=== PATIENT | male | born 1980 | race Caucasian/White ===

== ENCOUNTER → 2018-06-13 | Outpatient (CLI) | payer BC ==
[2018-06-15 09:46] LABS: Anion Gap 4.8 mmol/L (4.00-12.00); Calcium 9.8 mg/dL (8.7-10.3); Carbon Dioxide 29.2 mmol/L (21.6-31.8); LDL Cholesterol,Calculated 151.8 mg/dL (0.0-131.0); Potassium 4.8 mmol/L (3.5-5.5); VLDL Calculation 21.2 mg/dL (5.00-40.00)
[2018-06-15 11:27] LABS: Hemoglobin A1C 5.6 % (4.0-6.0)
== END ==
LOC: LABWHC1 09:16
PROVIDERS: ATTEND Nurse Practitioner Adult Health
DX: Z00.00 Encounter for general adult medical examination without abnormal findings (principal); Z87.891 Personal history of nicotine dependence
CPT/HCPCS: 36415; 80048; 80061; 83036

== ENCOUNTER → 2024-11-12 | Outpatient (CLI) | payer BC ==
--- NOTE | 2024-11-12 19:44 | CT ---
EXAMINATION TYPE: CT iac wo con DATE OF EXAM: 11/12/2024 6:25 PM COMPARISON: None. INDICATION: Patient age: Male; 44 years old; Reason for study: H83.8X2 OTHER SPECIFIED DISEASES OF LEFT INNER EAR; PHH. TECHNIQUE: Multiple thin axial images were obtained through the temporal bones and internal auditory canals. Additional coronal reformatted images were obtained. No IV contrast was utilized. STENVER a nd POSCHL views were created on a separate work station. CT DLP: 150 mGycm, Automated exposure control for dose reduction was used. FINDINGS: Right Temporal Bone: External Ear: The external auditory canal is unremarkable, The tympanic membrane is present and unrem arkable. Middle Ear: The ossicles demonstrate a normal appearance. Prussak's space is clear and the scutum i s intact. Inner Ear: Cochlea, vestibule and semi circular canals are unremarkable. No evidence of carotid norma l dehiscence. Two and a half turns of the cochlea are identified. The vestibular aqueduct is not enl arged. Mastoid Air Cells: The mastoid air cells are clear. The tegmen mastoideum is intact. The aditus ad an trum is clear. Internal Auditory Canal: The internal auditory canal is unremarkable. Left Temporal Bone: External Ear: The external auditory canal is unremarkable, The tympanic membrane is present and unrem arkable. Middle Ear: The ossicles demonstrate a normal appearance. Prussak's space is clear and the scutum i s intact. Inner Ear: Cochlea, vestibule and semi circular canals are unremarkable. No evidence of carotid norma l dehiscence. The vestibular aqueduct is not enlarged. Mastoid Air Cells: The mastoid air cells are clear. The tegmen mastoideum is intact. The aditus ad an trum is clear. Internal Auditory Canal: The internal auditory canal is unremarkable. Other: Mild scattered ethmoid air cell mucosal thickening. IMPRESSION: Unremarkable internal auditory canal study. [facility], , 11/12/2024 7:41 PM
== END | disposition home or self-care (01) ==
LOC: RADCTMAIN 17:44
PROVIDERS: ATTEND Otolaryngology
DX: H83.8X2 Other specified diseases of left inner ear (principal)
CPT/HCPCS: 70480